=== PATIENT | male | born 1990 | race Caucasian/White ===

== ENCOUNTER 2017-12-30 18:38 | Emergency (ER) | END 2017-12-30 20:10 | disposition home or self-care (01) ==

== ENCOUNTER 2018-02-17 07:18 | Emergency (ER) | END 2018-02-17 08:27 | disposition home or self-care (01) ==

== ENCOUNTER 2018-05-08 16:07 | Emergency (ER) | END 2018-05-08 17:21 | disposition home or self-care (01) ==